=== PATIENT | male | born 1995 | race Caucasian/White ===

== ENCOUNTER 2022-01-29 04:45 | Emergency (ER) | payer BC, MEDICAID ==
[~2022-01-29] VITALS: Ht 180.3 cm; Wt 128.5 kg
[~2022-01-29 04:45] MED LIST: OMEP20CA4 PO; PANT-47 PO
[2022-01-29] MEDS ORDERED: ZIPR40CA2 PO (05:04)
[2022-01-29] MEDS ORDERED: ziprasidone 20mg capsule PO ONE (05:05)
--- NOTE | 2022-01-29 05:32 | NUR ---
called [facility] for transfer home
[2022-01-29 06:09] VITALS: BP 168/100
== END 2022-01-29 05:21 | disposition home or self-care (01) ==
LOC: ER 04:46
DX: F41.9 Anxiety disorder, unspecified (principal); F12.90 Cannabis use, unspecified, uncomplicated; Z88.8 Allergy status to other drugs, medicaments and biological substances
CPT/HCPCS: 99283